=== PATIENT | female | born 1945 | race Caucasian/White ===

== ENCOUNTER 2023-02-04 12:01 | Day surgery (SDC) | payer MEDICARE, BC ==
[2023-02-04] MEDS ORDERED: IV NS 0.9% 250 ML IV ONE (13:53)
[2023-02-04] MEDS ORDERED: IOHEXOL-350 100 ML VIAL IV ONE (13:53)
== END 2023-02-04 23:00 | disposition left against medical advice (07) ==
LOC: CT 12:01
PROVIDERS: ATTEND Internal Medicine Interventional Cardiology
DX: Z53.21 Procedure and treatment not carried out due to patient leaving prior to being seen by health care provider (principal)
CPT/HCPCS: J7050; Q9967